=== PATIENT | female | born 1980 | race Caucasian/White ===

== ENCOUNTER → 2016-09-16 | Outpatient (CLI) | payer SELFPAY | LOC: HHS 10:03 | DX: Z12.83 Encounter for screening for malignant neoplasm of skin (principal) ==

== ENCOUNTER 2018-11-29 20:14 | Emergency (ER) | payer SELFPAY ==
[2018-11-29 20:23] VITALS: BP 147/85
== END 2018-11-29 23:20 | disposition left against medical advice (07) ==
LOC: ER 20:14
DX: Z53.21 Procedure and treatment not carried out due to patient leaving prior to being seen by health care provider (principal)